=== PATIENT | male | born 1985 | race African-American/Black ===

== ENCOUNTER 2017-11-29 12:17 | Emergency (ER) | payer OTHER ==
[2017-11-29] MEDS ORDERED: ACETAMINOPHEN 325 MG TAB PO ONE (12:45)
[2017-11-29] MEDS ORDERED: IBUPROFEN 600 MG TAB PO ONE (12:45)
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
[2017-11-29] MEDS ORDERED: DIPHTH/TETANUS/ACEL. PERTUSSIS IM ONLY ONE (13:00)
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
[2017-11-29 13:48] VITALS: BP 138/82
== END 2017-11-29 14:00 | disposition home or self-care (01) ==
LOC: ER 12:25
DX: M54.5 Low back pain (principal); S92.311A Displaced fracture of first metatarsal bone, right foot, initial encounter for closed fracture; S01.511A Laceration without foreign body of lip, initial encounter; Z23 Encounter for immunization; V47.6XXA Car passenger injured in collision with fixed or stationary object in traffic accident, initial encounter; Y93.89 Activity, other specified; Y92.411 Interstate highway as the place of occurrence of the external cause; Y99.8 Other external cause status
CPT/HCPCS: 73610; 73630; 90471; 90715; 99283; L0172; L3260